=== PATIENT | male | born 1950 | race Caucasian/White ===

== ENCOUNTER → 2017-02-26 | Outpatient (CLI) | payer MEDICARE, OTHER ==
[2017-02-26 11:02] LABS: EKG EKG PERFORMED
[2017-02-26 11:37] LABS: Appearance,Urine Clear (Clear); Bilirubin,Urine Negative (Negative); Glucose,Urine (UA) Negative (Negative); Ketones,Urine Negative (Negative); Leukocyte Esterase,Urine Negative (Negative); Nitrite,Urine Negative (Negative); PH, Urine 6.5 (5.0-8.0); Protein,Urine Negative (Negative); Specific Gravity,Urine 1.016 (1.001-1.035); UA Billing (MACRO vs. MICRO) CHEM; Urobilinogen,Urine <2.0 mg/dL (<2.0)
[2017-02-26 11:38] LABS: CH 29.8; CHCM 32.3; HCT 48.6 % (39.0-53.0); HDW 2.47; HGB 15.3 gm/dL (13.0-17.5); MCH 29.2 pg (25.0-35.0); MCHC 31.5 g/dL (31.0-37.0); MCV 92.6 fL (80.0-100.0); Mean Platelet Volume 8.2; RBC 5.25 m/uL (4.30-5.90); RDW 13.5 % (11.5-15.5); WBC 8.1 k/uL (3.8-10.6)
[2017-02-26 11:43] LABS: INR 1.1 (<1.2); Partial Thromboplastin Time 25.7 sec (22.0-30.0); Prothrombin Time 10.8 sec (9.0-12.0)
[2017-02-26 11:54] LABS: ALT 45 U/L (21-72); AST 26 U/L (17-59); Alkaline Phosphatase 77 U/L (38-126); Anion Gap 8 mmol/L; Blood Urea Nitrogen 16 mg/dL (9-20); Calcium 9.4 mg/dL (8.4-10.2); Carbon Dioxide 29 mmol/L (22-30); Chloride 103 mmol/L (98-107); Glucose 75 mg/dL (74-99); Non-African American GFR(MDRD) >60 (>60 ml/min/1.73 sqM); Potassium 4.6 mmol/L (3.5-5.1); Sodium 140 mmol/L (137-145); Total Bilirubin 0.4 mg/dL (0.2-1.3); Total Protein 6.9 g/dL (6.3-8.2)
== END | disposition home or self-care (01) ==
LOC: LABPAT 10:53
PROVIDERS: ATTEND Orthopaedic Surgery
DX: Z01.810 Encounter for preprocedural cardiovascular examination (principal); Z01.812 Encounter for preprocedural laboratory examination; M17.11 Unilateral primary osteoarthritis, right knee
CPT/HCPCS: 80053; 81003; 85027; 85610; 85730; 87070; 93005

== ENCOUNTER 2017-03-11 07:30 | Inpatient (IN) | payer MEDICARE, OTHER ==
[2017-03-01 12:35] VITALS: BMI 31.9
[~2017-03-11 07:30] MED LIST: ACETAMINOPHEN TAB 500 MG TAB PO ONE; CLINDAMYCIN 900 MG in DEXTROSE 5% IN WATER 50 ML IVPB ONE; HYDROmorphone 0.5 MG/0.5 ML SYRINGE IVP PRN; LIDOCAINE 1% 20 ML VIAL (10MG/ML) FOR IV START INTRADERMA PRN; MELOXICAM 7.5 MG TAB PO ONE; MIDAZOLAM 2 MG/2 ML VIAL IV PRN; ONDANSETRON 4 MG/2 ML VIAL IVP ONE; ROPIVACAINE 246.25 MG, EPINEPHrine 0.5 MG, KETOROLAC 30 MG, cloNIDine HCL/PF 80 MCG, WA... MISCELLANE ONE; TRANEXAMIC ACID 1,000 MG in SODIUM CHLORIDE 0.9% 100 ML IVPB ONE; fentaNYL (PF) 50 MCG/ML 20 ML VIAL IVP PRN
[2017-03-11] MEDS: LACTATED RINGERS 1,000 ML IV SCH (08:45)
[2017-03-11] MEDS ORDERED: ONDANSETRON 4 MG/2 ML VIAL IVP PRN (09:44)
[2017-03-11] MEDS ORDERED: hydrOXYzine PAMOATE 25 MG CAP PO PRN (09:44)
[2017-03-11] MEDS ORDERED: HYDROcodone/APAP 5-325MG 1 EACH TAB PO PRN ×2 (09:44)
[2017-03-11] MEDS ORDERED: NALOXONE 0.4 MG/ML 1 ML VIAL IV PRN (09:44)
[2017-03-11] MEDS ORDERED: NA PHOS,M-B/NA PHOS,DI-BA 133 ML ENEMA RECTAL PRN (09:44)
[2017-03-11] MEDS ORDERED: DIAZEPAM 5 MG TAB PO PRN ×2 (09:44)
[2017-03-11] MEDS ORDERED: BISACODYL 10 MG SUPP RECTAL PRN (09:44)
[2017-03-11] MEDS ORDERED: MAGNESIUM HYDROXIDE 2,400 MG/10 ML CUP PO PRN (09:44)
[2017-03-11] MEDS ORDERED: HYDROmorphone 0.5 MG/0.5 ML SYRINGE IVP PRN ×3 (09:44)
[2017-03-11] MEDS ORDERED: ROPIVACAINE 1,100 MG, SODIUM CHLORIDE 0.9% 330 ML MISCELLANE PRN ×2 (10:14)
--- NOTE | 2017-03-11 10:15 | P.ONQ ---
Anesthesiology Proc Note - PNB - Peripheral Nerve Block Performed Right Adductor Canal Indication: Acute Post-Operative Pain, Requested by physician (Dr Willie culver ) Sedation Type: Sedate with meaningful contact maintained Preparation: Sterile Dressing Position: Supine Catheter: Indwelling Needle Types: Other (see comment) (nina) Needle Size: 100mm (4") Needle Gauge: 18 Technique: Ultrasound Injectate: 0.5% Ropivacaine (see comment for volume) (20cc) Blood Aspirated: No Pain Paresthesia on Injection Noted: No Resistance on Injection: Normal Events: Uneventful and Well Tolerated
[2017-03-11] MEDS ORDERED: PHENYLEPHRINE-0.9% NACL SYG 1 MG/10 ML SYRINGE ONE (10:24)
[2017-03-11] MEDS ORDERED: SODIUM CHLORIDE 0.9% 100 ML BAG ONE (10:24)
[2017-03-11] MEDS ORDERED: MIDAZOLAM 2 MG/2 ML VIAL ONE (10:24)
[2017-03-11] MEDS ORDERED: PROPOFOL 10 MG/ML 20 ML VIAL IV ONE (10:24)
[2017-03-11] MEDS ORDERED: fentaNYL (PF) 50 MCG/ML 2 ML AMP ONE (10:24)
[2017-03-11] MEDS ORDERED: TRANEXAMIC ACID 1,000 MG/10 ML VIAL ONE (10:24)
[2017-03-11] MEDS ORDERED: CLINDAMYCIN 1,800 MG in SODIUM CHLORIDE 0.9% IRRIGATIO 3,000 ML IRRIGATION ONE (10:55)
[2017-03-11] MEDS ORDERED: LACTATED RINGERS 1,000 ML IV ONE (11:30)
--- NOTE | 2017-03-11 11:49 | P.OP ---
Date of Procedure: 03/11/17 Preoperative Diagnosis: Severe osteoarthritis right knee Postoperative Diagnosis: Severe osteoarthritis right knee Procedure(s) Performed: Right total knee arthroplasty Implants: [employer] Oxinium femoral component size 5, right [employer]acey [employer] Chela II right nonporous tibial baseplate size 5 Tracey [employer]hew size 9 mm Legion XLPE high flexion articular insert, size 5-6 [employer] Chela II resurfacing patellar component, 32 mm All components were cemented using Nadeem bone cement.. The articulation is Oxinium on polyethylene. Anesthesia: spinal Surgeon: Willie Boles Blog Writer #1: Laina Mendoza Estimated Blood Loss (ml): 50 Pathology: other (Bone and cartilage) Condition: stable Disposition: PACU Indications for Procedure: After failure of conservative treatment we discussed the surgical and nonsurgical treatment options at length. Patient wishes to proceed with a total knee arthroplasty. Complications specific to this procedure were discussed at length, including but not limited to infection, bleeding, stiffness , and nerve injury. Patient is aware of all these complications and informed consent was obtained Operative Findings: The operative findings are consistent with severe osteoarthritis of the right knee Description of Procedure: Patient was seen in the preoperative area consent was reviewed and operative site was marked with a skin marker. An adductor canal pain catheter was placed by anesthesia in the preoperative area. Patient was then brought to the operating room and given preoperative antibiotics intravenously. A spinal anesthetic was administered by the anesthesia department. A tourniquet was placed on the upper thigh and the lower extremity was prepped and draped in usual sterile fashion. A gram of transexamic acid was given. A universal timeout was then performed which confirmed the patient's name, surgical site, ALLERGIES, and consent. The lower extremity was then exsanguinated and tourniquet was inflated to 250 mmHg. A standard and anterior midline approach to the knee was performed. The skin and subcutaneous tissue was dissected down to the patellar tendon. A medial parapatellar arthrotomy was then performed. The knee was then extended, the patellar was everted, and the knee was again flexed. Anterior horns of both menisci were excised, and a release was performed to the posterior medial aspect of the knee. On gross visual inspection, there was complete loss of articular cartilage in the medial and patellofemoral joint spaces. There was also significant cartilage damage in the lateral compartment. There were multiple periarticular osteophytes which were then removed with a Ronguer. The femoral canal was then opened with the appropriate drill, and the intramedullary femoral cutting guide was then placed and set for 4 of valgus. The distal femoral cutting block was then pinned in place, and the distal femur was then cut. The cutting block was then removed and the cut was checked for flatness. Next, the sizing guide was then placed and set for 3 external rotation based off of the epicondylar axis and Whitesides line. After the femur was sized, the appropriate 4-in-1 cutting block was then pinned in place. The anterior condyles were cut without notching. The posterior and chamfer cuts were performed while protecting the collateral ligaments. The cutting block was then removed, and the femoral canal was plugged with autologous bone. Attention was then directed to the tibia. The remaining ACL was removed with a Ronguer, and the tibia was then gently subluxed forward with a large bent knee retractor. Any remaining menisci was excised. The posterior lateral corner was cauterized in order to cauterize the lateral geniculate artery. The extra medullary tibial cutting guide was then placed, set for the appropriate rotation , slope, and depth of resection. The proximal tibia cutting guide was then pinned in place. Proximal tibia was then cut and sized. Next trials were then placed with the appropriate-sized insert. The knee was able to fully extend and flex to 130 and was stable throughout all range of motion. The knee was then extended, patella everted. Patella was then measured, and then using an osteotomy guide, the patella was cut at the appropriate level. The patella was then measured and drilled and the patella trial was then placed. The knee was then taken through range of motion with the patella trial and the patella tracked normally. The knee was then extended patella trial was then removed and the patella was everted. Knee was then flexed and lug holes were drilled through the femoral trial and the femoral trial was then removed. The tibial was then exposed, and the tibial broach guide was then pinned in place after it was set for the appropriate rotation to allow for the most coverage without overhang. The tibia was then reamed and broached. The cut surfaces of bone were then irrigated with pulsatile lavage. The posterior structures were injected with the ropivacaine solution. The knee was also irrigated with Irrisept solution. The components were then opened, the cement was mixed, and the components were then cemented in place. The cement was allowed to harden with the knee in full extension. While the cement was hardening, the remaining soft tissues were then injected with a ropivacaine solution, which consisted of 246.25 mg of ropivacaine, 0.5 mg of epinephrine, 30 mg of Toradol, 80 g of clonidine, and 48.45 mL of sterile water, for a total of 100 mL of fluid injected. After the cemented hardened. The tourniquet was released, and hemostasis was obtained. A second gram of transexamic acid was given. The knee was again irrigated. The knee was again taken through range of motion and found to be stable throughout all range of motion of 0-130 , and the patella tracked normally. The fascia was then closed with #2 strata fix suture. The subcutaneous tissue was closed with 3-0 Vicryl and 3-0 strata fix. Dermabond tape was used for the skin and placed with the knee in flexion. The patient was placed in a sterile dressing. Patient was then transferred to recovery room in stable condition. The zoning assistant TAWANNA Weinstein was required due the complexity surgery and the need for a skilled surgical sales representative. She assisted in positioning, draping, retraction, and closure of the wound.
--- NOTE | 2017-03-11 12:40 | XR ---
EXAMINATION TYPE: XR knee limited RT DATE OF EXAM: 03/11/2017 COMPARISON: NONE TECHNIQUE: Two views submitted HISTORY: Post op FINDINGS: There is a prosthetic knee in near anatomic alignment. There is soft tissue edema and emphysema. IMPRESSION: 1. Postoperative change. Appears in near-anatomic alignment
[2017-03-11] MEDS: SODIUM CHLORIDE 0.9% 1,000 ML IV SCH (14:01)
[2017-03-11] MEDS: CLINDAMYCIN 900 MG in DEXTROSE 5% IN WATER 50 ML IVPB SCH ×4 (17:33→20:54)
[2017-03-11] MEDS ORDERED: DIPHENOX-ATROP 2.5-0.025 MG 1 EACH TAB PO PRN (17:55)
[2017-03-11] MEDS: ASPIRIN 325 MG TAB PO SCH (20:54)
[2017-03-11] MEDS: CALCIUM CARBONATE LIQUID 500 MG/5 ML CUP PO SCH (20:54)
[2017-03-11] MEDS ORDERED: SENNOSIDES-DOCUSATE SODIUM 1 EACH TAB PO SCH (21:00)
--- NOTE | 2017-03-11 23:53 | CONS ---
CONSULTATION REASON FOR CONSULTATION: Medical management requested by Dr. Boles. CONSULTATION: This is a pleasant 67-year-old patient whose chronic stable medical conditions include hypertension, osteoarthritis of the lower back, left knee, irritable bowel syndrome, GERD. He has undergone right total knee arthroplasty. Some pain is present. No nausea, vomiting. No chest pain. Denies any cardiac history. Lying in bed. REVIEW OF SYSTEMS: CONSTITUTIONAL: None. HEENT: None. RESPIRATORY: None. CARDIOVASCULAR: None. GASTROINTESTINAL: Heartburn. GENITOURINARY: None. MUSCULOSKELETAL: Pain in lower back and left knee, also. DERMATOLOGICAL: None. HEMATOLOGIC: None. LYMPHATIC: None. PSYCHIATRY: None. NEUROLOGICAL: None. PAST HISTORY: 1. Hypertension. 2. Osteoarthritis. 3. Irritable bowel syndrome. 4. GERD. PAST SURGICAL HISTORY: 1. Carpal tunnel. 2. Left rotator cuff. SOCIAL HISTORY: Smoked half a pack a day for 40 years; stopped in 2011. . 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. FAMILY HISTORY: Cancer, type unknown. HOME MEDICATIONS: 1. Norvasc 5 mg p.o. daily. 2. Valsartan/hydrochlorothiazide 160/12.5 one tablet p.o. daily. 3. Peppermint 1 tablet p.o. daily. 4. Lomotil 1 tablet p.o. q.i.d. p.r.n. ALLERGIES: PENICILLIN. PHYSICAL EXAMINATION: On examination, temperature 97.2, pulse 68, respiration 16, blood pressure 129/76, pulse ox 95% on room air. GENERAL APPEARANCE: Well built; BMI 31.9. Lying in bed, comfortable. EYES: Pupils equal.. Conjunctivae normal. HEENT: Oral cavity normal. NECK: JVD not raised. Mass not palpable. RESPIRATORY: Effort normal. LUNGS: Slightly decreased breath sounds. CARDIOVASCULAR: First and second sounds normal. No edema. ABDOMEN: Soft. Non-tender. Liver and spleen not palpable. LYMPHATIC: No lymph node palpable in neck or axillae. PSYCHIATRY: Alert and oriented x3. Mood and affect normal. NEUROLOGICAL: Pupils equal. Cranial nerves grossly intact. Power and sensation grossly intact. EXTREMITIES: Dressing over the right knee. INVESTIGATIONS: Blood work from 02/26/17 shows a white count of 8.1, hemoglobin 15.3, platelets 205, potassium 4.6. BUN and creatinine normal. ASSESSMENT: 1. Right total knee arthroplasty. 2. Primary osteoarthritis also of the left knee. 3. Irritable bowel syndrome. 4. Chronic gastroesophageal reflux disease. 5. Essential hypertension. PLAN: Home medications will be resumed. The patient is on aspirin 325 p.o. b.i.d. for DVT prophylaxis. Pain control is in place. For heartburn he will be given some TUMS. Care was discussed with the patient. Questions were answered. The patient should follow up with his PCP upon discharge. Thank you, Dr. Boles. MILTON / KELLENN: [phone] /
[2017-03-12] MEDS: SODIUM CHLORIDE 0.9% 1,000 ML IV SCH (00:17)
[2017-03-12 02:26] VITALS: RESP 16
[2017-03-12] MEDS: LACTATED RINGERS 1,000 ML IV SCH (05:44)
[2017-03-12 07:59] LABS: Basophils # (A) 0.1 k/uL (0-0.2); Basophils % (A) 1 %; CHCM 32.6; Eosinophils # (A) 0.1 k/uL (0-0.7); Eosinophils % (A) 1 %; HCT 45.3 % (39.0-53.0); HDW 2.44; HGB 14.5 gm/dL (13.0-17.5); Luc # (Auto) 0.13; Luc % (Auto) 1; Lymphocytes # (A) 1.1 k/uL (1.0-4.8); Lymphocytes % (A) 10 %; MCH 29.6 pg (25.0-35.0); MCV 92.5 fL (80.0-100.0); Mean Platelet Volume 8.2; Monocytes # (A) 0.6 k/uL (0-1.0); Monocytes % (A) 5 %; Neutrophils # (A) 8.8 k/uL (1.3-7.7); Neutrophils % (A) 82 %; RBC 4.89 m/uL (4.30-5.90); RDW 13.4 % (11.5-15.5); WBC 10.8 k/uL (3.8-10.6)
--- NOTE | 2017-03-12 08:02 | P.PN ---
Progress Note - Text The patient is status post right adductor canal catheter placement. The catheter was placed for postoperative pain control, status post total right arthroplasty. Ropivacaine 0.2% is infusing at 8 mLs per hour. The patient has no complaints of right lower extremity numbness or weakness. Patient's VAS score is 1-2-10. Assessment: Patient's adductor canal catheter is in place and working appropriately. Plan: continue infusion and adjust it as needed.
[2017-03-12] MEDS: CALCIUM CARBONATE LIQUID 500 MG/5 ML CUP PO SCH (08:15)
[2017-03-12] MEDS: ASPIRIN 325 MG TAB PO SCH (08:17)
[2017-03-12 08:56] VITALS: BP 127/78; PULSE 111; TEMP 98.5
[2017-03-12] MEDS ORDERED: HYDROCHLOROTHIAZIDE 12.5 MG CAP PO SCH (09:00)
[2017-03-12] MEDS ORDERED: VALSARTAN 160 MG TAB PO SCH (09:00)
[2017-03-12] MEDS ORDERED: MELOXICAM 7.5 MG TAB PO SCH (09:00)
[2017-03-12] MEDS ORDERED: amLODIPine 5 MG TAB PO SCH (09:00)
--- NOTE | 2017-03-12 09:50 | P.DS ---
Providers Date of admission: 03/11/17 07:59 Expected date of discharge: 03/12/17 Attending physician: Willie Boles Consults: 03/11/17 09:44 Consult Physician Routine Consulting Provider: Juancho Baez Consult Reason/Comments: medical management Do you want consulting provider notified?: Yes Primary care physician: Yanci Flynn - Discharge Diagnosis(es) (1) Primary osteoarthritis of right knee Current Visit: Yes Status: Acute (2) S/P total knee arthroplasty Current Visit: Yes Status: Acute Hospital Course: This is a 67-year-old male with known history of degenerative arthritis of the right knee. The patient presents for evaluation. After discussion and consideration patient elects to proceed with total knee arthroplasty. The patient is seen preoperatively by Dr. Boles and cleared for surgery. Patient is admitted to [facility] on 03/11/2017 for total knee arthroplasty. The procedures performed without complication or sequelae. The patient is doing well postoperatively. Labs and vital signs are stable on day of discharge. On day of discharge patient's knee incision is healing well. There is minimal erythema. There is no drainage noted at this time. There is minimal soft tissue swelling to the knee. Patient has full foot and ankle motion without difficulty or pain. Neurovascular status to the right lower extremity is intact. Patient is discharged home in good condition. Please see med rec for accurate list of home medications. Plan - Discharge Summary New Discharge Prescriptions: New Aspirin 325 mg PO BID #60 tab HYDROcodone/APAP 5-325MG [Rialto 5-325] 1 - 2 tab PO Q4-6H PRN #90 tab PRN Reason: Pain Sennosides-Docusate Sodium [Senokot-S] 1 tab PO BID #60 tablet No Action amLODIPine BESYLATE [Norvasc] 5 mg PO DAILY Valsartan/Hydrochlorothiazide [Valsartan-Hctz 160-12.5 mg Tab] 1 tab PO DAILY Diphenox-Atrop 2.5-0.025 mg [Lomotil] 1 tab PO QID PRN PRN Reason: ibs Peppermint 1 tab PO DAILY Discharge Medication List Valsartan/Hydrochlorothiazide [Valsartan-Hctz 160-12.5 mg Tab] 1 tab PO DAILY [History] amLODIPine BESYLATE [Norvasc] 5 mg PO DAILY 01/29/14 [History] Diphenox-Atrop 2.5-0.025 mg [Lomotil] 1 tab PO QID PRN 03/01/17 [History] Peppermint 1 tab PO DAILY 03/01/17 [History] Aspirin 325 mg PO BID #60 tab 03/12/17 [Rx] HYDROcodone/APAP 5-325MG [Rialto 5-325] 1 - 2 tab PO Q4-6H PRN #90 tab 03/12/17 [ Rx] Sennosides-Docusate Sodium [Senokot-S] 1 tab PO BID #60 tablet 03/12/17 [Rx] Follow up Appointment(s)/Referral(s): [facility], [NON-STAFF] - Willie Boles DO [Doctor of Osteopathic Medicine] - 2 Weeks Ambulatory/Diagnostic Orders: Continuous Passive Motion (CPM) Machine [DME.AMB1] Time Frame: 3 Weeks, Location : Determined By Patient Ambulatory Physical Therapy Order [THER.AMB] Location: Determined By Patient Activity/Diet/Wound Care/Special Instructions: Weightbearing as tolerated with a walker CPM 5-6h daily Daily dressing changes, keep incision clean and dry May shower if no drainage from incision [facility] with questions or concerns [phone] Discharge Disposition: HOME WITH HOME HEALTH SERVICES
[2017-03-12] MEDS ORDERED: ACETAMINOPHEN TAB 325 MG TAB PO PRN (10:55)
--- NOTE | 2017-03-12 11:24 | CONS ---
CONSULTATION DATE OF SERVICE: 03/12/2017 PRESENT COMPLAINT: Knee surgery. INTERVAL HISTORY: Patient status post right knee surgery. Pain is controlled. Very slight nausea. Uneventful night. No chest pain or shortness of breath. Has been up with physical therapy. is at the bedside. REVIEW OF SYSTEMS: Done for constitutional, cardiovascular, GI, pulmonary, musculoskeletal; relevant findings as above next. CURRENT MEDICATIONS: Reviewed. PHYSICAL EXAMINATION: Temperature is 98.5, pulse 111, respirations 16, blood pressure 127/58, pulse ox 94% on room air. GENERAL APPEARANCE: Sitting up, comfortable. EYES: Pupils equal. Conjunctivae normal. NECK: JVD not raised. Mass not palpable. RESPIRATORY: Effort normal. Lungs are clear. CARDIOVASCULAR: 1st and 2nd sounds normal. No edema. ABDOMEN: Soft, nontender. Liver and spleen not palpable. RIGHT KNEE: In a dressing. PSYCHIATRY: Alert and oriented x3. Mood and affect were normal. INVESTIGATIONS: White count 10.8, hemoglobin 14.5. ASSESSMENT: 1. Right total knee arthroplasty. 2. Primary osteoarthritis of the left knee. 3. Irritable bowel syndrome. 4. Chronic gastroesophageal reflux disease. 5. Essential hypertension. PLAN: Care was discussed with the patient. Should follow with the family doctor when discharged. Patient doing well, comfortable, thankful. Thank you, Dr. Boles. MILTON / KELLENN: [phone] /
== END 2017-03-12 14:30 | disposition home health service (06) | DRG 470 ==
LOC: 2ORMAIN 07:59 → 3SUR 12:21
PROVIDERS: ADMIT Orthopaedic Surgery; ATTEND Orthopaedic Surgery
PROC: 0SRC069 Replacement of Right Knee Joint with Oxidized Zirconium on Polyethylene Synthetic Substitute, Cemented, Open Approach (ICD-10-PCS; principal; 2017-03-11 09:45)
DX: M17.11 Unilateral primary osteoarthritis, right knee (principal); I10 Essential (primary) hypertension; K21.9 Gastro-esophageal reflux disease without esophagitis; K58.9 Irritable bowel syndrome, unspecified; M47.9 Spondylosis, unspecified; Z79.899 Other long term (current) drug therapy; Z87.891 Personal history of nicotine dependence; Z88.0 Allergy status to penicillin
CPT/HCPCS: 85025; 88300